=== PATIENT | male | born 1965 | race Caucasian/White ===

== ENCOUNTER → 2017-09-22 | Outpatient (CLI) | payer BC, OTHER ==
[~2017-09-22] MED LIST: ALEVE220 M1 PO; BACTRIM DS TAB1 EACH PO; FLEXERIL PO; IBUPROFEN 800800 M1 PO; NAPROSYN500 MG PO; NORFLEX100 MG PO
== END ==
LOC: RAD 12:44
DX: M17.0 Bilateral primary osteoarthritis of knee (principal)

== ENCOUNTER 2020-10-30 15:43 | Emergency (ER) | payer OTHER ==
[~2020-10-30] VITALS: Ht 177.8 cm; Wt 131.5 kg
[2020-10-30] MEDS ORDERED: NAPROSYN500 MG PO (18:21)
[2020-10-30] MEDS ORDERED: KEFLEX250 MG PO (18:21)
[2020-10-30] MEDS ORDERED: TYLENOL325 M1 PO (18:21)
[2020-10-30 18:36] VITALS: BP 151/82
== END 2020-10-30 18:54 | disposition home or self-care (01) ==
LOC: ER 15:43
DX: N61.0 Mastitis without abscess (principal); Z79.899 Other long term (current) drug therapy; Z87.891 Personal history of nicotine dependence; Z91.048 Other nonmedicinal substance allergy status

== ENCOUNTER 2021-06-15 19:45 | Emergency (ER) | payer OTHER ==
[~2021-06-15] VITALS: Ht 177.8 cm; Wt 122.5 kg
[~2021-06-15 19:45] MED LIST changes: +KEFLEX250 MG PO; +TYLENOL325 M1 PO
[2021-06-15] MEDS ORDERED: MOBIC7.5 MG PO (21:31)
[2021-06-15 22:29] VITALS: BP 187/97
== END 2021-06-15 22:30 | disposition home or self-care (01) ==
LOC: ER 19:45
DX: S09.90XA Unspecified injury of head, initial encounter (principal); M25.562 Pain in left knee; M79.642 Pain in left hand; E66.9 Obesity, unspecified; Z87.891 Personal history of nicotine dependence; V49.88XA Car occupant (driver) (passenger) injured in other specified transport accidents, initial encounter; Y93.89 Activity, other specified; Y92.413 State road as the place of occurrence of the external cause; Y99.9 Unspecified external cause status

== ENCOUNTER 2021-06-17 11:35 | Emergency (ER) | payer OTHER ==
[~2021-06-17] VITALS: Ht 177.8 cm; Wt 122.5 kg
[~2021-06-17 11:35] MED LIST changes: +MOBIC7.5 MG PO
[2021-06-17 14:32] LABS: HEMATOCRIT 44.9 % (42.0-52.0); MCH 29.2 pg (26.0-34.0); MCHC 33.5 g/dL (28.0-37.0); RBC 5.16 mil/uL (4.50-6.00); RDW 14.6 % (10.5-14.5); WBC 10.4 thou/uL (4.0-11.0)
[2021-06-17 14:45] LABS: CALCIUM 8.8 mg/dL (8.5-10.1); CREATININE 1.5 mg/dL (0.7-1.3); POTASSIUM 3.5 mmol/L (3.5-5.1)
[2021-06-17] MEDS ORDERED: FLEXERIL PO (17:47)
[2021-06-17 18:07] VITALS: BP 211/134
== END 2021-06-17 18:48 | disposition home or self-care (01) ==
LOC: ER 11:35
PROVIDERS: Emergency Medicine
DX: S13.4XXA Sprain of ligaments of cervical spine, initial encounter (principal); S00.01XA Abrasion of scalp, initial encounter; M54.50 Low back pain, unspecified; Z79.1 Long term (current) use of non-steroidal anti-inflammatories (NSAID); Z79.891 Long term (current) use of opiate analgesic; Z79.899 Other long term (current) drug therapy; Z91.09 Other allergy status, other than to drugs and biological substances; Z87.891 Personal history of nicotine dependence; V49.3XXA Car occupant (driver) (passenger) injured in unspecified nontraffic accident, initial encounter; Y93.89 Activity, other specified; Y92.89 Other specified places as the place of occurrence of the external cause; Y99.8 Other external cause status